=== PATIENT | female | born 1965 ===

== ENCOUNTER 2024-09-07 17:15 | Emergency (ER) | payer OTHER, SELFPAY ==
[2024-09-07 17:20] VITALS: BP 124/90
--- NOTE | 2024-09-07 18:29 | ED.SKININJ ---
HPI-Injury
General
Chief Complaint: Bite
Source: patient
Exam Limitations: none
Time Seen by Provider: 09/07/24 18:19
History of Present Illness-Injury
Is pt an associate of [facility]?: No
Initial Injury comments:
See MDM
Past History
Past History
ED Past Medical History: None
ED Past Surgical History: None
Social History
Tobacco: Non-smoker
Alcohol: None
Phy Exam
Physical Exam
Physical Exam:
See MDM
Course
Vital Signs
Initial and Last Documented VS:
Initial Vital Signs
Temp Pulse Resp BP Pulse Ox
97.6 F 67 16 124/90 100
09/07/24 17:20 09/07/24 17:20 09/07/24 17:20 09/07/24 17:20 09/07/24 17:20
Last Documented Vital Signs
Temp Pulse Resp BP Pulse Ox
97.6 F 67 16 124/90 100
09/07/24 17:20 09/07/24 17:20 09/07/24 17:20 09/07/24 17:20 09/07/24 17:20
MDM/Problems Addressed
Differential Diagnosis Includes:
HPI and MDM Narrative:
58-year-old female presenting with multiple wasp stings. This occurred a few hours ago. She started feel funny in her throat and she started to have diarrhea. She took Benadryl and went to urgent care. There, she received IM Decadron. Given the
rash, she was sent to the emergency department for further evaluation. While here, she has been well-appearing nontoxic. Given duration of symptoms, we discussed discharge and return precautions. Given the rash and GI complaint, we discussed
anaphylactic reaction
Physical exam
General: Well appearing and non-toxic
HEENT: protecting airway
Neck: No stridor, supple
CV: No evidence of cyanosis
Resp: No accessory muscle use. Lungs clear
Abd: Non-distended
Extremities: No deformities
Neuro: alert
Psych: Normal affect
Skin: Urticaria to calves and back
Problems Addressed including Acute and Chronic Conditions affecting care:
1. Anaphylactic reaction
Acuity: acute
Prognosis: stable
Details: Given how well she is 2+ hours after the event, discussed safety for discharge. She understands return precautions.
Differential Diagnosis (but not limited to): Anaphylactic reaction, localized reaction
Testing considered: Blood work
Drug therapy (if applicable): OTC meds, please see d/c instruction regarding Rx drugs
Amount and/or Complexity of Data Reviewed
Clinical info obtained from: Patient
External data reviewed: N/A
Labs I independently reviewed (but not limited to): N/A
Radiology: N/A
Pulse Ox: not hypoxic
EKG independently reviewed: N/A
[employer]: N/A
Critical Care: N/A
Risk of Complication:
Social Determinants of health: Good social support
Discussed with other providers: N/A
Escalation of Care includes Admit/Obs: After being observed in the Emergency Department, pt stable for discharge.
Occasional wrong word or 'sound a like' substitutions may have occurred due to the inherent limitations of voice recognition software. Read the chart carefully and recognize, using context, where substitutions have occurred.
*Pulse Oximetry
SaO2: 100
Oxygen Mode of Delivery: Room air
Patient hypoxic: no
*Critical Care Note
Total Time (30-74mins, 75-104mins- exclusive of procedures): Not Applicable
ED Attending Note
-
Portions of this chart may have been created with voice recognition software.� Occasional wrong word or��sound alike� substitutions may have occurred due to the inherent limitations of voice recognition software.
Discharge Plan
Departure
Patient Disposition: Home (Routine Discharge)
Date of Disposition: 09/07/24
Time of Disposition: 18:29
Patient with high blood pressure during this ER visit?: No
Discharge Problem:
Anaphylactic reaction
Instructions: Insect Bites and Stings (DC)
Prescriptions:
New
prednisone 20 mg tablet
40 mg PO DAILY Qty: 10 0RF
famotidine [Pepcid] 20 mg tablet
20 mg PO BID Qty: 10 0RF
epinephrine [EpiPen 2-Mat] 0.3 mg/0.3 mL auto-injector
0.3 mg IM ONCE Qty: 2 0RF
Activity Restrictions/Additional Instructions:
Please return for any worsening symptoms.
You may return at any time if you have further concerns.
Please follow up with your doctor at the first available appointment, preferably this week.
Thank you for choosing [facility].
Interventions
Interventions:
*Risk Screen - Suicide Last Done: 09/07/24 17:22
*Neglect/Abuse Screening Last Done: 09/07/24 17:22
Discharge Date and Time
Print Language: [id number]
== END 2024-09-07 18:38 | disposition home or self-care (01) ==
LOC: EMR 17:15
PROVIDERS: EMERGENCY PHYSICIAN Student in an Organized Health Care Education/Training Program; FAMILY PHYSICIAN Family Medicine
DX: T78.2XXA Anaphylactic shock, unspecified, initial encounter (principal); Y92.9 Unspecified place or not applicable
CPT/HCPCS: 99282